=== PATIENT | male | born 1975 | race Caucasian/White ===

== ENCOUNTER 2018-02-16 19:10 | Observation (INO) | payer MEDICAID ==
--- NOTE | 2018-02-16 19:08 | EDPHY ---
H & P Time Seen by Provider: 02/16/18 19:10 Constitutional: Initial Vital Signs Temperature (C) 36.7 C 02/16/18 19:38 Heart Rate 105 H 02/16/18 19:38 Respiratory Rate 18 02/16/18 19:38 Blood Pressure 169/104 H 02/16/18 19:38 O2 Sat (%) 97 02/16/18 19:38 O2 Delivery Mode Room Air Allergies/Adverse Reactions: No Known Allergies Allergy (Unverified 02/16/18 20:09) Home Medications: Medication Instructions Recorded NK [No Known Home Meds] 02/16/18 Medical Decision Making ED Course/Re-evaluation: CHIEF COMPLAINT: Medical clearance, meth use HISTORY OF PRESENT ILLNESS: The patient is a 42 y/o male who arrives via EMS in PD custody in restraints for medical clearance. PD contacted him near a road acting erratically and were concerned for drug use. He has been cooperative for EMS, but states he is unable to sit still. He reports these erratic movements are normal for him and he is always moving. He says in [place], "they call me Rubberband Man. I get rhabdo from [employer]. I can't stop moving." He admits to using meth last night at a concert and says his frequent choreic movements " I think are from prolonged meth use." He denies any similar movements or known neurologic disorders in either parent. He only complains of being hungry and thirsty and says, "can we please put the TV on ESPN?" He denies recent trauma, illness, or intoxicants other than methamphetamine. REVIEW OF SYSTEMS: A 10 point review of systems was performed and is negative with the exception of the elements mentioned in the history of present illness. PHYSICAL EXAM: General Appearance: Alert, well hydrated, appropriate, and non-toxic appearing. Head: Atraumatic without scalp tenderness or obvious injury Eyes: Pupils equal, round, reactive to light and accommodation, EOMI, no trauma , no injection. Nose: Atraumatic, no rhinorrhea, clear. Throat: Mucus membranes moist. Neck: Supple, nontender, no lymphadenopathy. Respiratory: No retractions, no distress, no wheezes, and no accessory muscle use. Lungs are clear to auscultation bilaterally. Cardiovascular: Regular rate and rhythm, no murmurs, rubs, or gallops. Good capillary refill all extremities. Gastrointestinal: Abdomen is soft, nontender, non-distended, no masses, no rebound, no guarding, no peritoneal signs. Musculoskeletal: Normal active ROM of all extremities, atraumatic. Neurological: Alert, appropriate, and interactive. Choreic movements. Skin: No rashes, good turgor, no nodules on palpation. Past medical history: Methamphetamine abuse, history of rhabdomyolysis Past surgical history: Denies Family history: Noncontributory Social history: Came from [place], [place]. Reports he was recently seen by a PCP through [facility]. DIFFERENTIAL DIAGNOSIS: MEDICAL DECISION MAKING: Patient is in no acute distress and is hemodynamically stable. He is having frequent choreic movements concerning for [place]'s or other neurologic disorder, though could also be solely due to his methamphetamine use. He is otherwise calm and cooperative and does not require restraints nor mental health evaluation at this time. Plan for IV, labs including CK, urine tox, and admission for further evaluation of his choreic movements as he reports he has not been evaluated by a neurologist previously for this. 2mg PO Ativan administered upon arrival. Spoke with hospitalist service. Dr. Mcmullen accepts admission. Total CK 1300. WBC elevated. Toxicology so far is negative. Patient is feeling improved after Ativan and food. Movements have reduced in frequency and severity. He is resting comfortably. - Data Points Laboratory Results: Laboratory Results 02/16/18 19:30 02/16/18 19:30 02/16/18 02/16/18 02/16/18 19:30 19:30 19:30 WBC RBC Hgb Hct MCV MCH MCHC RDW Plt Count MPV Neut % (Auto) Lymph % (Auto) Hunt % (Auto) Eos % (Auto) Baso % (Auto) Nucleat RBC Rel Count Absolute Neuts (auto) Absolute Lymphs (auto) Absolute Monos (auto) Absolute Eos (auto) Absolute Basos (auto) Absolute Nucleated RBC Immature Gran % Immature Gran # RBC/WBC/PLT Morphology Platelet Estimate Sodium Potassium Chloride Carbon Dioxide Anion Gap BUN Creatinine Estimated GFR Glucose Calcium Magnesium 1.5 mg/dL L mg/dL (1.6-2.3) Total Bilirubin 0.9 mg/dL mg/dL (0.1-1.4) Conjugated Bilirubin 0.3 mg/dL mg/dL (0.0-0.5) Unconjugated Bilirubin 0.6 mg/dL mg/dL (0.0-1.1) AST 62 IU/L H IU/L (17-59) ALT 47 IU/L IU/L (21-72) Alkaline Phosphatase 99 IU/L IU/L (38-126) Creatine Kinase CK-MB (CK-2) Fraction CK-MB (CK-2) % Creatine Kinase Interp Total Protein 7.3 g/dL g/dL (6.3-8.2) Albumin 4.2 g/dL g/dL (3.5-5.0) Vitamin B12 Pending TSH Pending Salicylates Acetaminophen Ethyl Alcohol BRIAN Screen Pending Syphilis IgG/IgM Ab Pending Hepatitis C Antibody Pending HIV 1&2 Antibody Pending 02/16/18 02/16/18 19:30 19:30 WBC 22.93 10^3/uL H 10^3/uL (3.80-9.50) RBC 4.62 10^6/uL 10^6/uL (4.40-6.38) Hgb 13.4 g/dL L g/dL (13.7-17.5) Hct 40.0 % % (40.0-51.0) MCV 86.6 fL fL (81.5-99.8) MCH 29.0 pg pg (27.9-34.1) MCHC 33.5 g/dL g/dL (32.4-36.7) RDW 13.1 % % (11.5-15.2) Plt Count 312 10^3/uL 10^3/uL (150-400) MPV 9.3 fL fL (8.7-11.7) Neut % (Auto) 91.3 % H % (39.3-74.2) Lymph % (Auto) 3.1 % L % (15.0-45.0) Hunt % (Auto) 4.6 % % (4.5-13.0) Eos % (Auto) 0.0 % L % (0.6-7.6) Baso % (Auto) 0.2 % L % (0.3-1.7) Nucleat RBC Rel Count 0.0 % % (0.0-0.2) Absolute Neuts (auto) 20.94 10^3/uL H 10^3/uL (1.70-6.50) Absolute Lymphs (auto) 0.71 10^3/uL L 10^3/uL (1.00-3.00) Absolute Monos (auto) 1.05 10^3/uL H 10^3/uL (0.30-0.80) Absolute Eos (auto) 0.00 10^3/uL L 10^3/uL (0.03-0.40) Absolute Basos (auto) 0.05 10^3/uL 10^3/uL (0.02-0.10) Absolute Nucleated RBC 0.00 10^3/uL 10^3/uL (0-0.01) Immature Gran % 0.8 % % (0.0-1.1) Immature Gran # 0.18 10^3/uL H 10^3/uL (0.00-0.10) RBC/WBC/PLT Morphology TNP Platelet Estimate TNP Sodium 135 mEq/L mEq/L (135-145) Potassium 4.3 mEq/L mEq/L (3.3-5.0) Chloride 101 mEq/L mEq/L (97-110) Carbon Dioxide 21 mEq/l L mEq/l (22-31) Anion Gap 13 mEq/L mEq/L (8-16) BUN 25 mg/dL H mg/dL (7-23) Creatinine 0.8 mg/dL mg/dL (0.7-1.3) Estimated GFR > 60 Glucose 65 mg/dL L mg/dL (70-100) Calcium 9.4 mg/dL mg/dL (8.5-10.4) Magnesium Total Bilirubin Conjugated Bilirubin Unconjugated Bilirubin AST ALT Alkaline Phosphatase Creatine Kinase 1300 IU/L H IU/L (0-224) CK-MB (CK-2) Fraction 15.90 ng/mL H ng/mL (0.00-4.55) CK-MB (CK-2) % 1.2 % % (0.0-4.0) Creatine Kinase Interp NEGATIVE (NEGATIVE) Total Protein Albumin Vitamin B12 TSH Salicylates < 1.0 mg/dL L mg/dL (2.0-20.0) Acetaminophen < 10 mcg/mL L mcg/mL (10-30) Ethyl Alcohol < 10 mg/dL mg/dL (0-10) BRIAN Screen Syphilis IgG/IgM Ab Hepatitis C Antibody HIV 1&2 Antibody Medications Given: Discontinued Medications Lorazepam (Ativan) 2 mg PO EDNOW ONE Stop: 02/16/18 20:12 Last Admin: 02/16/18 20:13 Dose: 2 mg Departure - Departure Disposition: [facility] Inpatient Acute Clinical Impression: Choreic movements Rhabdomyolysis Qualifiers: Rhabdomyolysis type: non-traumatic Qualified Code(s): M62.82 - Rhabdomyolysis Condition: Fair Report Scribed for: Giovanni Ace Report Scribed by: Violetta Marquez Date of Report: 02/16/18 Time of Report: 19:41
[2018-02-16] MEDS ORDERED: LORazepam 1 MG TAB ONE ×2 (19:13)
[2018-02-16 19:51] LABS: PLATELET COUNT 312 10^3/uL (150-400)
[2018-02-16 19:59] LABS: CREATINE KINASE 1300 IU/L (0-224)
[2018-02-16] MEDS ORDERED: LORazepam 1 MG TAB PO ONE (20:11)
[2018-02-16] MEDS ORDERED: hydrALAZINE 25 MG TAB PO PRN (20:43)
[2018-02-16] MEDS ORDERED: LORazepam 2 MG/ML INJ IVP PRN (20:43)
[2018-02-16] MEDS ORDERED: ACETAMINOPHEN 325 MG TAB PO PRN (20:43)
[2018-02-16] MEDS ORDERED: NS 1,000 ML IV SCH (20:45)
[2018-02-16] MEDS ORDERED: D5W NS 1,000 ML IV SCH (21:00)
--- NOTE | 2018-02-16 21:01 | PDGENHP ---
History and Physical - Chief Complaint abnormal movements - History of Present Illness 42 yo male with h/o methamphetamine abuse is brought to ED by police after he was found on the street with markedly abnormal movements. There was concern for his safety. He states he last used meth "at the [facility]". He cannot tell me which day he last used. He has h/o IVDA. He is from [place], [place] and came to [place] "for something different". He denies fevers or chills. He has a chronic cough. No CP or SOB. He says he has had this movement disorder for years. Denies family h/o [place]. He has no other specific complaints. Denies changes in bowel or bladder habits. No abdominal pain. In the ED, his choreiform movements improved dramatically after IV Ativan. He is admitted for further evaluation. History Information - Allergies/Home Medication List Allergies/Adverse Reactions: No Known Allergies Allergy (Unverified 02/16/18 20:09) Home Medications: NK [No Known Home Meds] 02/16/18 [Last Taken Unknown] I have personally reviewed and updated: family history, medical history, social history, surgical history - Past Medical History Additional medical history: IVDA, methamphetamine abuse. H/O movement disorder - Social History Smoking Status: Light smoker Review of Systems Review of Systems: ROS: 10pt was reviewed & negative except for what was stated in HPI & below Physical Exam Physical Exam: Temp Pulse Resp BP Pulse Ox 36.7 C 105 H 18 169/104 H 97 02/16/18 19:38 02/16/18 19:38 02/16/18 19:38 02/16/18 19:38 02/16/18 19:38 Constitutional: no apparent distress Eyes: PERRL Ears, Nose, Mouth, Throat: moist mucous membranes Cardiovascular: regular rate and rhythym Respiratory: no respiratory distress, clear to auscultation Gastrointestinal: normoactive bowel sounds, soft, non-tender abdomen Skin: warm Musculoskeletal: full muscle strength Neurologic: AAOx3, other (frequent choreiform movements of UE's and head) Psychiatric: agitated Lab Data & Imaging Review 02/16/18 19:30 02/16/18 19:30 WBC 22.93 10^3/uL (3.80-9.50) H 02/16/18 19:30 RBC 4.62 10^6/uL (4.40-6.38) 02/16/18 19:30 Hgb 13.4 g/dL (13.7-17.5) L 02/16/18 19:30 Hct 40.0 % (40.0-51.0) 02/16/18 19:30 MCV 86.6 fL (81.5-99.8) 02/16/18 19:30 MCH 29.0 pg (27.9-34.1) 02/16/18 19:30 MCHC 33.5 g/dL (32.4-36.7) 02/16/18 19:30 RDW 13.1 % (11.5-15.2) 02/16/18:30 Plt Count 312 10^3/uL (150-400) 02/16/18 19:30 MPV 9.3 fL (8.7-11.7) 02/16/18 19:30 Neut % (Auto) 91.3 % (39.3-74.2) H 02/16/18 19:30 Lymph % (Auto) 3.1 % (15.0-45.0) L 02/16/18 19:30 [place] % (Auto) 4.6 % (4.5-13.0) 02/16/18 19:30 Eos % (Auto) 0.0 % (0.6-7.6) L 02/16/18 19:30 Baso % (Auto) 0.2 % (0.3-1.7) L 02/16/18: Nucleat RBC Rel Count 0.0 % (0.0-0.2) 02/16/18 19:30 Absolute Neuts (auto) 20.94 10^3/uL (1.70-6.50) H 02/16/18 19:30 Absolute Lymphs (auto) 0.71 10^3/uL (1.00-3.00) L 02/16/18 19:30 Absolute Monos (auto) 1.05 10^3/uL (0.30-0.80) H 02/16/18 19:30 Absolute Eos (auto) 0.00 10^3/uL (0.03-0.40) L 02/16/18 19:30 Absolute Basos (auto) 0.05 10^3/uL (0.02-0.10) 02/16/18 19:30 Absolute Nucleated RBC 0.00 10^3/uL (0-0.01) 02/16/18 19:30 Immature Gran % 0.8 % (0.0-1.1) 02/16/18 19:30 Immature Gran # 0.18 10^3/uL (0.00-0.10) H 02/16/18 19:30 RBC/WBC/PLT Morphology TNP 02/16/18 19:30 Platelet Estimate TNP 02/16/18 19:30 Sodium 135 mEq/L (135-145) 02/16/18 19:30 Potassium 4.3 mEq/L (3.3-5.0) 02/16/18 19:30 Chloride 101 mEq/L (97-110) 02/16/18 19:30 Carbon Dioxide 21 mEq/l (22-31) L 02/16/18 19:30 Anion Gap 13 mEq/L (8-16) 02/16/18 19:30 BUN 25 mg/dL (7-23) H 02/16/18 19:30 Creatinine 0.8 mg/dL (0.7-1.3) 02/16/18 19:30 Estimated GFR > 60 02/16/18 19:30 Glucose 65 mg/dL (70-100) L 02/16/18 19:30 Calcium 9.4 mg/dL (8.5-10.4) 02/16/18 19:30 Creatine Kinase 1300 IU/L (0-224) H 02/16/18 19:30 CK-MB (CK-2) Fraction 15.90 ng/mL (0.00-4.55) H 02/16/18 19:30 CK-MB (CK-2) % 1.2 % (0.0-4.0) 02/16/18 19:30 Creatine Kinase Interp NEGATIVE (NEGATIVE) 02/16/18 19:30 Salicylates < 1.0 mg/dL (2.0-20.0) L 02/16/18 19:30 Acetaminophen < 10 mcg/mL (10-30) L 02/16/18 19:30 Ethyl Alcohol < 10 mg/dL (0-10) 02/16/18 19:30 Assessment & Plan Assessment: Choreiform movements - this is a chronic issue. No known family history of [place]'s. The differential is broad, but acute or chronic methamphetamine use is the most likely etiology given his history. Drug screen pending. Also consider autoimmune/inflammatory process- check BRIAN, cerebrovascular process- check MRI brain with and without contrast, infectious process- no headache or nuchal rigidity thus will defer LP for now, send RPR, HIV, vitamin deficiency- send B12, also check Mag and TSH. Neurology consult requested for am. PRN ativan for tonight as he responded well to this in ED. Leukocytosis - suspect this may be stress response. No obvious source of infection and pt afebrile. Will follow. Mild rhabdomyolysis - likely secondary to movement disorder above. Will give IVF's and repeat CK in am. H/O methamphetamine abuse / IVDA - drug screen pending. CM consult. Check HIV and Hep C. Elevated BP - prn hydralazine Full code Dispo - obs
[2018-02-16 22:08] LABS: HIV TYPE 1 AND 2 NEGATIVE (NEGATIVE)
[2018-02-16] MEDS ORDERED: NS 1,000 ML IV ONE (22:21)
[2018-02-16 23:45] LABS: HEPATITIS C ANTIBODY TOTAL REACTIVE (NEGATIVE)
[2018-02-17 03:58] LABS: PLATELET COUNT 279 10^3/uL (150-400)
[2018-02-17 04:02] LABS: CREATINE KINASE 921 IU/L (0-224)
--- NOTE | 2018-02-17 10:01 | NEUROPROG ---
Assessment: [id number] - Neurology Consult: - CC: Dr. Sara Mcmullen consulted neurology for abnormal movements. Results placed in EMR for her review. - HPI: Pt brought to [facility] ER by police on 02/16/18 for abnormal movements. Pt reported long history of methamphetamine abuse (recently used drug but not sure exactly when). UTox positive for amphetamines. Pt noted to have had abnormal choreiform movements for years. He denied FHx of Huntingtons Disease. His choreiform movements improved in ER with ativan use. He was admitted to [facility]. He had some increased CK likely from mild rhabdomyolysis that was improving with hydration. I initially saw him on 02/17/18. His neurologic exam on was unremarkable (pt was drowsy) and no abnormal movement was noted. He denied current complaints. A brain MRI was pending. - PMHx: methamphetamine abuse, Hep C, IV drug use, H/O of movement disorder - SHx: light smoker FHx: no Huntingtons disease - ROS: Pt denied acute fever, total vision loss, active severe chest pain, respiratory failure, total body severe rash, total bowel/bladder incontinence, psychosis, active seizures, or active bleeding - O: VS reviewed General: drowsy Eyes: Fundoscopic exam not able to visualize optic disks CV: Heart RRR, no murmur, no carotid bruit Lungs: Clear to auscultation bilaterally, no rhonchi or rales Neuro: - Mental: . Oriented x person/place/date . concentration appears normal . speech fluency/comprehension normal . memory appears normal . fund of knowledge appear intact - Cranial Nerves: . II: PERRL, VFFTC . III/IV/: EOMI, no nystagmus, normal smooth pursuits, no Ptosis . V: facial sensation intact to LT . VII: face symmetric to eye closure and smile . VIII: hearing intact to conversation . IX/X: uvula raises symmetrically . XI: SCM 5/5 B/L strength . XII: tongue protrudes midline w/nl strength - Motor: . Tone: normal tone in all 4 extremity . Strength: no pronator drift, strength 5/5 throughout (B/L delt, bic, tri, hand qualification engineer, hf/he, df/pf) - Reflexes: B/L patella 2/4 - Sensory: all 4 extremity intact to light touch - Coord: mjdgis-jq-xijn wnl, ZACH wnl, ogvz-sv-rfhy wnl - Gait: deferred - Labs: 02/16/18- CK 1300H, TSH wnl, B12 261, Hep C+, HIV 1 /2 negative, syphilis negative 02/17/18- CBC WBC 12.44H, Chem Anion gap 4L Cr 0.6L, CK 921H, UTox positive for amphetamines, benzodiazepines, marijuana; - Rads: 02/16/18- CXR: normal (I personally visualized the images on 02/17/18) - Assessment: 1. Abnormal Movements in setting of chronic methamphetamine abuse: Unremarkable neurologic exam on 02/17/18. Recommend brain MRI and if unremarkable then he should refrain from methamphetamine abuse and f/u in the neurology clinic 1-4 weeks after hospital discharge. - Plan: - Brain MRI w/ and w/o con to evaluate for structural brain lesion causing movement disorder, if this study is unremarkable then no further inpatient w/u needed at this time - Avoid methamphetamine abuse - F/U in neurology clinic 1-4 weeks after hospital discharge Objective: Vital Signs Temp Pulse Resp BP Pulse Ox 36.4 C 80 17 116/65 96 02/17/18 09:31 02/17/18 09:31 02/17/18 09:31 02/17/18 09:31 02/17/18 09:31 Laboratory Results 02/17/18 03:25 02/17/18 03:25 02/16/18 02/17/18 02/18/18 05:59 05:59 05:59 Intake Total 240 1160 Balance 240 1160 Allergies/Adverse Reactions: No Known Allergies Allergy (Unverified 02/16/18 20:09)
--- NOTE | 2018-02-17 10:21 | ASMTCAGE ---
CAGE Do you feel you ought to Answers: Yes cut down on your drinking or drug use? Do people annoy you by Answers: No criticizing your drinking or drug use? Do you feel guilty about Answers: No your drinking or drug use? Do you drink or use drugs Answers: Yes first thing in the morning (Eye Physical Therapist Technician)? Additional Comments reports 10+ drinks per week of 2-3 fingers of whiskey. In addtion daily use of speed 1/2 gram to 1 gram. Declined resources for cessation. Date Signed: 02/17/2018 10:20 AM Electronically Signed By:Juliann Wallace RN
--- NOTE | 2018-02-17 10:26 | ASMTCMCOM ---
CM Note CM Note Notes: 02/17/2018 Case Management Note Met w/pt to discuss discharge needs. Pt is transient arriving in [place] from [place]. Pt has no definate plans for how long he will stay in the [place] area. Provided info on the coordinated entry process for the [facility]. Pt requested shirt, socks and shoes. Case Management to provide upon discharge. Completed CAGE form. Pt declined resources for achieving sobriety. Case Management d/c poc: to [place]. Case Management available if additional needs arise. Date Signed: 02/17/2018 10:26 AM Electronically Signed By:Juliann Wallace RN
[2018-02-17 11:40] VITALS: BP 115/60
--- NOTE | 2018-02-17 16:19 | PDDCSUM ---
Discharge Summary Discharge Summary: Dates of service 02/16-02/17/18 Consultations: neurology Procedures performed: none Hospital course by problem: Choreiform movements - apparently a recurrent issue but per patient only occurs when he is actively intoxicated. Neurology evaluated, they recommend MRI and no further w/u but unfortunately MRI could not be performed in a timely fashion and patient prefers to have this f/u as an OP. Leukocytosis - suspect this may be stress response. No obvious source of infection and pt afebrile. Will follow. Mild rhabdomyolysis - likely secondary to movement disorder above. Will give IVF's and repeat CK in am. H/O methamphetamine abuse / IVDA - drug screen pending. CM consult. HIV negative and Hep C reactive, will need op f/u. Elevated BP - resolved, likely due to intoxication dc home f/u with neurology for OP MRI > 35 min spent in dc more than half in coordination of care
--- NOTE | 2018-02-17 17:04 | ASMTDCNOTE ---
Case Management Discharge Discharge Order Complete? Answers: Yes Patient to Obtain Answers: Independently Medications Transportation Arranged Answers: Other Notes: self Discharge Comments Notes: 02/18/2018 Case Management Note Pt to discharge to street. Provided clothes and info on long-term coordinated entry. Date Signed: 02/17/2018 04:53 PM Electronically Signed By:Juliann Wallace RN
--- NOTE | 2018-02-17 17:04 | ASDISCHSUM ---
Discharge Information Plan Status:Homeless/Skilled Nursing Medically Cleared to Leave:02/17/2018 Discharge Date:02/17/2018 CM D/C Disposition:Home, Routine, Self-Care ADT D/C Disposition:Home, Routine, Self-Care Projected Discharge Date:02/17/2018 Transportation at D/C:Self Discharge Delay Reason: Follow-Up Date:02/17/2018 Discharge Slot: Final Diagnosis: Placement Information Patient Contact Information Contact Name:FLORENCE Relationship:Booker Address: Work Phone: City: [facility] Phone: State/Zip Code: Email: Financial Information Financial Class:Medicaid Primary Plan Desc:MEDICAID HEALTH [employer] [place] Primary Plan Number:[id number] Secondary Plan Desc: Secondary Plan Number: Assessment Information LACE LACE Length of stay for Answers: Less than 1 day current admission Acuity / Level of Answers: No Care: Did the patient have an inpatient admission? Comorbidities - select Answers: Other Notes: h/o rhabdomylosis, meth all that apply use, IV drug use # of Emergency department Answers: 1-2 visits in the last 6 months Social determinants Answers: History of substance abuse (ETOH, street drugs, prescription drugs, etc.) Score: 5 Date Signed: 02/17/2018 04:51 PM Electronically Signed By:Juliann Wallace RN CAGE Questionnaire CAGE Do you feel you ought to Answers: Yes cut down on your drinking or drug use? Do people annoy you by Answers: No criticizing your drinking or drug use? Do you feel guilty about Answers: No your drinking or drug use? Do you drink or use drugs Answers: Yes first thing in the morning (Eye Osteopathic Physician)? Additional Comments reports 10+ drinks per week of 2-3 fingers of whiskey. In addtion daily use of speed 1/2 gram to 1 gram. Declined resources for cessation. Date Signed: 02/17/2018 10:20 AM Electronically Signed By:Juliann Wallace RN [facility] CM Progress Note CM Note CM Note Notes: 02/17/2018 Case Management Note Met w/pt to discuss discharge needs. Pt is transient arriving in [place] from [place]. Pt has no definate plans for how long he will stay in the [place] area. Provided info on the coordinated entry process for the [facility]. Pt requested shirt, socks and shoes. Case Management to provide upon discharge. Completed CAGE form. Pt declined resources for achieving sobriety. Case Management d/c poc: to [place]. Case Management available if additional needs arise. Date Signed: 02/17/2018 10:26 AM Electronically Signed By:Juliann Wallace RN Case Management Discharge Plan Note Case Management Discharge Discharge Order Complete? Answers: Yes Patient to Obtain Answers: Independently Medications Transportation Arranged Answers: Other Notes: self Discharge Comments Notes: 02/18/2018 Case Management Note Pt to discharge to [place]. Provided clothes and info on residential coordinated entry. Date Signed: 02/17/2018 04:53 PM Electronically Signed By:Juliann Wallace RN Intervention Information Intervention Type:Clothing Date of Service:02/17/2018 04:51 PM Patient Type:Observation Staff Member:GUY Wallace Juliann Hours:0.25 Discipline: Severity: Comment:
== END 2018-02-17 17:32 | disposition home or self-care (01) ==
LOC: F2W 22:40
PROVIDERS: ADMIT Hospitalist; ATTEND Internal Medicine
DX: R25.8 Other abnormal involuntary movements (principal); F15.10 Other stimulant abuse, uncomplicated; D72.829 Elevated white blood cell count, unspecified; M62.82 Rhabdomyolysis; R03.0 Elevated blood-pressure reading, without diagnosis of hypertension; F17.200 Nicotine dependence, unspecified, uncomplicated; B19.20 Unspecified viral hepatitis C without hepatic coma; R05 Cough
CPT/HCPCS: 71045; G0378; 80305; 82607-90; G0472; G0480

== ENCOUNTER 2018-03-22 | Emergency (ER) | payer OTHER | END 2018-03-22 09:53 | disposition home or self-care (01) ==

== ENCOUNTER 2018-05-24 17:38 | Emergency (ER) | payer MEDICAID ==
[2018-05-24] MEDS ORDERED: LORazepam 2 MG/ML INJ ONE (17:47)
[2018-05-24] MEDS ORDERED: HALOPERIDOL LACT 5 MG/ML INJ IV ONE (17:53)
[2018-05-24] MEDS ORDERED: LORazepam 2 MG/ML INJ IVP ONE (17:54)
--- NOTE | 2018-05-24 17:56 | EDPHY ---
H & P Smoking Status: Heavy smoker Time Seen by Provider: 05/24/18 17:44 HPI/ROS: Chief complaint. Methamphetamine ingestion HPI. Patient is a 42-year-old male presents by EMS with agitation after using methamphetamine. The timing of the ingestion is unclear. Patient was agitated in public and bystanders called police. Patient denies any other ingestions. He has a history of methamphetamine use and abuse. He denies chest pain or shortness of breath. Denies abdominal pain. He is quite agitated. ROS 10 systems were reviewed and negative with the exception of the elements mentioned in the history of present illness (Olu Fiore) Past Medical/Surgical History: Polysubstance abuse, hepatitis C, IVDA, movement disorder (Olu Fiore) Social History: Single, daily smoker, no alcohol (Olu Fiore) Physical Exam: General Appearance: Alert, very agitated well-developed male moderate distress. Vital signs show initial heart rate 131 with blood pressure 91/50 Eyes: Pupils equal and round no pallor or injection. ENT, Mouth: Mucous membranes are moist. Respiratory: There are no retractions, lungs are clear to auscultation. Cardiovascular: Regular rate and rhythm. Gastrointestinal: Abdomen is soft and nontender, no masses, bowel sounds normal. Neurological: Awake and alert, sensory and motor exams grossly normal. Skin: Warm and dry, no rashes. Musculoskeletal: Neck is supple nontender. Extremities symmetrical, full range of motion. Psychiatric: Patient appears to be oriented though is fairly rambling in his answers. He is agitated (Olu Fiore) Constitutional: Initial Vital Signs Heart Rate 131 H 05/24/18 17:40 Respiratory Rate 30 H 05/24/18 17:40 Blood Pressure 91/50 L 05/24/18 17:40 O2 Sat (%) 93 05/24/18 17:40 O2 Delivery Mode Room Air Allergies/Adverse Reactions: No Known Allergies Allergy (Verified 03/22/18 00:33) Home Medications: Medication Instructions Recorded NK [No Known Home Meds] 03/22/18 Medical Decision Making Procedures: IV normal saline. Ativan 2 mg IV followed by Haldol 5 mg IV. (Olu Fiore) ED Course/Re-evaluation: After Haldol and Ativan patient is now sleeping. He has 2 L of normal saline ordered because of concern for rhabdomyolysis. Patient's CPK is elevated. At 7:45 p.m. Patient's heart rate is 83 and blood pressure is 116/68. Patient is in sinus rhythm (Olu Fiore) 2148: Patient is still sedated after Haldol and Ativan. His CK has trended down. He is getting 1/3 L fluid. Patient needs to metabolize his Haldol and Ativan. Once awake he can safely be discharged from the emergency room. 2299: Patient up ambulatory. Stable gait. Has no complaints. Sober. CK trending down. Patient received 3 L of fluid. Highly recommend patient refrain from doing methamphetamine. (Flip Stanford) Differential Diagnosis: I considered electrolyte abnormality, symptoms and sequelae of an agitation from methamphetamine, rhabdomyolysis (Olu Fiore) Care Turn Over: care to Dr. Charles at 2100 (Olu Fiore) - Data Points Laboratory Results: Laboratory Results 05/24/18 18:54 05/24/18 18:54 05/24/18 05/24/18 05/24/18 20:55 18:54 18:54 WBC 8.31 10^3/uL 10^3/uL (3.80-9.50) RBC 4.20 10^6/uL L 10^6/uL (4.40-6.38) Hgb 12.5 g/dL L g/dL (13.7-17.5) Hct 36.0 % L % (40.0-51.0) MCV 85.7 fL fL (81.5-99.8) MCH 29.8 pg pg (27.9-34.1) MCHC 34.7 g/dL g/dL (32.4-36.7) RDW 12.9 % % (11.5-15.2) Plt Count 347 10^3/uL 10^3/uL (150-400) MPV 8.8 fL fL (8.7-11.7) Neut % (Auto) 71.4 % % (39.3-74.2) Lymph % (Auto) 17.9 % % (15.0-45.0) [place] % (Auto) 9.6 % % (4.5-13.0) Eos % (Auto) 0.5 % L % (0.6-7.6) Baso % (Auto) 0.4 % % (0.3-1.7) Nucleat RBC Rel Count 0.0 % % (0.0-0.2) Absolute Neuts (auto) 5.93 10^3/uL 10^3/uL (1.70-6.50) Absolute Lymphs (auto) 1.49 10^3/uL 10^3/uL (1.00-3.00) Absolute Monos (auto) 0.80 10^3/uL 10^3/uL (0.30-0.80) Absolute Eos (auto) 0.04 10^3/uL 10^3/uL (0.03-0.40) Absolute Basos (auto) 0.03 10^3/uL 10^3/uL (0.02-0.10) Absolute Nucleated RBC 0.00 10^3/uL 10^3/uL (0-0.01) Immature Gran % 0.2 % % (0.0-1.1) Immature Gran # 0.02 10^3/uL 10^3/uL (0.00-0.10) Sodium 138 mEq/L mEq/L (135-145) Potassium 4.3 mEq/L mEq/L (3.3-5.0) Chloride 102 mEq/L mEq/L (97-110) Carbon Dioxide 24 mEq/l mEq/l (22-31) Anion Gap 12 mEq/L mEq/L (6-14) BUN 26 mg/dL H mg/dL (7-23) Creatinine 0.9 mg/dL mg/dL (0.7-1.3) Estimated GFR > 60 Glucose 93 mg/dL mg/dL (70-100) Calcium 9.5 mg/dL mg/dL (8.5-10.4) Creatine Kinase 764 IU/L H IU/L 890 IU/L H IU/L (0-224) (0-224) CK-MB (CK-2) Fraction 10.70 ng/mL H ng/mL 12.60 ng/mL H ng/mL (0.00-4.55) (0.00-4.55) CK-MB (CK-2) % 1.4 % % 1.4 % % (0.0-4.0) (0.0-4.0) Creatine Kinase Interp NEGATIVE NEGATIVE (NEGATIVE) (NEGATIVE) Medications Given: Discontinued Medications Haloperidol Lactate (Haldol Injection) 5 mg IV EDNOW ONE Stop: 05/24/18 17:54 Last Admin: 05/24/18 18:01 Dose: 5 mg Sodium Chloride (Ns) 1,000 mls @ 0 mls/hr IV EDNOW ONE; Wide Open PRN Reason: Protocol Stop: 05/24/18 19:10 Last Admin: 05/24/18 19:12 Dose: 1,000 mls Sodium Chloride (Ns) 1,000 mls @ 0 mls/hr IV EDNOW ONE; Wide Open PRN Reason: Protocol Stop: 05/24/18 19:10 Last Admin: 05/24/18 19:12 Dose: 1,000 mls Sodium Chloride (Ns) 1,000 mls @ 0 mls/hr IV ONCE ONE PRN Reason: Wide Open Stop: 05/24/18 21:51 Last Admin: 05/24/18 21:50 Dose: 1,000 mls Lorazepam (Ativan Injection) 2 mg IVP EDNOW ONE Stop: 05/24/18 17:55 Last Admin: 05/24/18 18:00 Dose: 2 mg Departure - Departure Disposition: Home, Routine, Self-Care Clinical Impression: Polysubstance abuse, Choreic movements Condition: Good Instructions: Methamphetamine Abuse (ED) Additional Instructions: return for worsening symptoms Drink plenty of fluids [facility]uation [facility] Referrals: NONE *PRIMARY CARE P,. [Primary Care Provider] - As per Instructions [facility] [Outside] - 1-2 days without fail
[2018-05-24] MEDS ORDERED: NS 1,000 ML IV ONE ×3 (19:09→21:50)
[2018-05-24 19:13] LABS: PLATELET COUNT 347 10^3/uL (150-400)
[2018-05-24 19:19] LABS: CREATINE KINASE 890 IU/L (0-224)
[2018-05-24 21:18] LABS: CREATINE KINASE 764 IU/L (0-224)
[2018-05-24 23:14] VITALS: BP 106/73
== END 2018-05-24 23:14 ==
LOC: EDUNIT#
DX: F15.129 Other stimulant abuse with intoxication, unspecified (principal); E86.9 Volume depletion, unspecified
CPT/HCPCS: 96374; J1630; J2060

== ENCOUNTER 2018-11-15 23:07 | Emergency (ER) | payer MEDICAID ==
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
[2018-11-15 23:24] VITALS: BP 117/70
[2018-11-15] MEDS ORDERED: OLANZapine 10 MG/2 ML VIAL IM ONE (23:58)
== END 2018-11-16 00:35 | disposition home or self-care (01) ==
LOC: EDUNIT#
DX: F15.19 Other stimulant abuse with unspecified stimulant-induced disorder (principal); B19.20 Unspecified viral hepatitis C without hepatic coma; Z59.0 Homelessness

== ENCOUNTER 2018-12-21 15:01 | Emergency (ER) | payer MEDICAID ==
[2018-12-21] MEDS ORDERED: HALOPERIDOL LACT 5 MG/ML INJ ONE (15:03)
[2018-12-21] MEDS ORDERED: LORazepam 2 MG/ML INJ ONE (15:04)
[2018-12-21] MEDS ORDERED: HALOPERIDOL LACT 5 MG/ML INJ IM ONE (15:07)
[2018-12-21] MEDS ORDERED: LORazepam 2 MG/ML INJ IM ONE (15:07)
[2018-12-21] MEDS ORDERED: HALOPERIDOL LACT 5 MG/ML INJ IVP ONE (15:11)
[2018-12-21] MEDS ORDERED: LORazepam 2 MG/ML INJ IVP ONE (15:11)
[2018-12-21] MEDS ORDERED: NS 1,000 ML IV ONE ×3 (15:12→15:47)
--- NOTE | 2018-12-21 16:26 | EDPHY ---
H & P Stated Complaint: Meth use Source: Patient, Police, EMS Exam Limitations: Intoxication - Personal History Current Tetanus/Diphtheria Vaccine: Yes Current Tetanus Diphtheria and Acellular Pertussis (TDAP): Yes - Medical/Surgical History Hx Asthma: No Hx Chronic Respiratory Disease: No Hx Diabetes: No Hx Cardiac Disease: No Hx Renal Disease: No Hx Cirrhosis: No Hx Alcoholism: No Hx HIV/AIDS: No Hx Splenectomy or Spleen Trauma: No Other PMH: drug use (meth,crack), hep c, - Social History Smoking Status: Heavy smoker Time Seen by Provider: 12/21/18 16:16 HPI/ROS: HPI: This is a 43-year-old male who presents with Chief Complaint: Methamphetamine use/intoxication Location: Body/psychiatric Quality: Methamphetamine use/intoxication Duration: Unknown Signs and Symptoms: no fever, no nausea, no vomiting, no hematemesis, no blood in stool, no abdominal bloating, no diarrhea, no back pain, no urinary symptoms , no testicular/groin pain, no indigestion, no chest pain, no shortness of breath Timing: Unknown Severity: Severe Context: Patient is homeless, originally from [place], presents via EMS [facility] as a bystander came upon patient inside of the stair well of a local business. They saw the patient inside of the building acting erratically. Police were called and patient admitted to IV methamphetamine use approximately 4 hr prior to arrival. He reports that he uses crack cocaine as well but has not used in several days. Heavy tobacco user. History of hepatitis-C. Patient is very erratically, agitated and uncooperative. Patient denies homicidal ideation, suicidal ideation. Modifying Factors: Versed 5 mg given by EMS with no relief of symptoms Comment: ROS: A comprehensive 10 system review of systems is otherwise negative aside from elements mentioned in the history of present illness. MEDICAL/SURGICAL/SOCIAL HISTORY: Medical history: Hepatitis-C Surgical history: Denies Social history: Homeless. Heavy tobacco user. Crack cocaine and methamphetamine IV use. Family history noncontributory. CONSTITUTIONAL: Adult white male, untidy, agitated, uncooperative, flailing around, awake and alert, no obvious distress HEENT: Atraumatic and normocephalic, PERRL, EOMI. Nares patent; no rhinorrhea; no nasal mucosal edema. Tympanic membranes clear. Oropharynx clear, no exudate and moist pink mucosa. Airway patent. No lymphadenopathy. No meningismus. Cardiovascular: Normal S1/S2, regular rate, regular rhythm, without murmur rub or gallop. PULMONARY/CHEST: Symmetrical and nontender. Clear to auscultation bilaterally. Good air movement. No accessory muscle usage. ABDOMEN: Soft, nondistended, nontender, no rebound, no guarding, no peritoneal signs, no masses or organomegaly. No CVAT. EXTREMITIES: 2/2 pulses, strength 5/5, no deformities, no clubbing, no cyanosis or edema. NEUROLOGICAL: no focal neuro deficits. GCS 15. Pressured speech pattern. SKIN: Warm and dry, no erythema. no rash. Good capillary refill. (Hayde Frias) Constitutional: Initial Vital Signs Temperature (C) 36.8 C 12/21/18 15:01 Heart Rate 99 12/21/18 15:01 Respiratory Rate 16 12/21/18 15:01 Blood Pressure 107/56 L 12/21/18 15:01 O2 Sat (%) 93 12/21/18 15:01 O2 Delivery Mode Nasal Cannula O2 (L/minute) 2 Allergies/Adverse Reactions: No Known Allergies Allergy (Verified 11/15/18 23:17) Home Medications: Medication Instructions Recorded NK [No Known Home Meds] 03/22/18 Medical Decision Making ED Course/Re-evaluation: Vital signs reviewed and stable upon arrival. Agree with [facility]. Placed in 4 point restraints for patient and staff safety after several attempts of interventions. Given IM Haldol 10 mg, IM Ativan 2 mg and IM Benadryl 50 mg placed on cardiac rehab nurse and oxygen therapy Given 2 L normal saline 1705: Reassessed patient who is still sleeping soundly. Protecting airway. Patient was signed over to Dr. Ace pending reassessment once he becomes more sober. He is not welcome at the [facility] and will likely be discharged home. This patient was seen under the supervision of my secondary supervising physician. I evaluated and cared for this patient with attending. (Hayde Frias) 1914: I assessed this patient. He is safe to be discharged home. Return precautions provided. (Giovanni Ace) Differential Diagnosis: Differential diagnosis includes but is not limited to major depression, anxiety disorder, schizophrenia, bipolar disorder, intoxicant use, suicidal ideation, psychosis, marine. (Hayde Frias) - Data Points Medications Given: Discontinued Medications Diphenhydramine HCl (Benadryl Injection) 50 mg IM ONCE ONE Stop: 12/21/18 15:09 Last Admin: 12/21/18 15:28 Dose: Not Given Diphenhydramine HCl (Benadryl Injection) 50 mg IVP EDNOW ONE Stop: 12/21/18 15:12 Last Admin: 12/21/18 15:10 Dose: 50 mg Haloperidol Lactate (Haldol Injection) 10 mg IM EDNOW ONE Stop: 12/21/18 15:08 Last Admin: 12/21/18 15:29 Dose: Not Given Haloperidol Lactate (Haldol Injection) 10 mg IVP EDNOW ONE Stop: 12/21/18 15:12 Last Admin: 12/21/18 15:10 Dose: 10 mg Sodium Chloride (Ns) 1,000 mls @ 0 mls/hr IV ONCE ONE PRN Reason: Wide Open Stop: 12/21/18 15:13 Last Admin: 12/21/18 15:10 Dose: 1,000 mls Sodium Chloride (Ns) 1,000 mls @ 0 mls/hr IV EDNOW ONE; Wide Open PRN Reason: Protocol Stop: 12/21/18 15:48 Last Admin: 12/21/18 16:06 Dose: 1,000 mls Sodium Chloride (Ns) 1,000 mls @ 0 mls/hr IV EDNOW ONE; Wide Open PRN Reason: Protocol Stop: 12/21/18 15:48 Last Admin: 12/21/18 16:06 Dose: 1,000 mls Lorazepam (Ativan Injection) 2 mg IM EDNOW ONE Stop: 12/21/18 15:08 Last Admin: 12/21/18 15:29 Dose: Not Given Lorazepam (Ativan Injection) 2 mg IVP EDNOW ONE Stop: 12/21/18 15:12 Last Admin: 12/21/18 15:10 Dose: 2 mg Departure - Departure Disposition: Home, Routine, Self-Care Clinical Impression: Methamphetamine abuse, Methamphetamine intoxication Condition: Good Instructions: Methamphetamine Abuse (ED) Additional Instructions: Please refrain from using drugs. Referrals: [facility],. [Clinic] - As per Instructions
[2018-12-21 19:35] VITALS: BP 120/94
== END 2018-12-21 19:34 | disposition home or self-care (01) ==
LOC: EDUNIT#
DX: F15.921 Other stimulant use, unspecified with intoxication delirium (principal); E86.9 Volume depletion, unspecified; B19.20 Unspecified viral hepatitis C without hepatic coma; Z59.0 Homelessness
CPT/HCPCS: 96374; J1200; J1630; J2060

== ENCOUNTER 2019-01-18 22:53 | Emergency (ER) | payer MEDICAID | END 2019-01-19 06:09 | disposition home or self-care (01) ==